=== PATIENT | female | born 1980 | race Caucasian/White ===

== ENCOUNTER 2016-12-05 08:17 | Inpatient (IN) | payer BC ==
[~2016-12-05] VITALS: Ht 165.1 cm; Wt 71.4 kg
[~2016-12-05 08:17] MED LIST: CEFAZOLIN 1,000 MG ONE; DOCU-30 PO; EPHEDRINE 50 MG/ML, 1ML ONE; IBUP-1222 PO; ONDANSETRON 2MG/ML, 2ML ONE; OXYC-302 PO; OXYTOCIN 10 UNITS/ML, 1ML ONE; PHENYLEPHRINE 10 MG/ML ONE; PREN1TAB60 PO
[2016-12-08] MEDS ORDERED: LACTATED RINGERS 1,000 ML IV SCH ×3 (06:06→08:31)
[2016-12-08] MEDS ORDERED: OXYTOCIN 30U/ 0.9% NaCL 500ML 500 ML IV SCH (06:06)
[2016-12-08] MEDS ORDERED: METOCLOPRAMIDE 5 MG/ML, 2ML ONE (06:11)
[2016-12-08] MEDS ORDERED: NEWBORN KIT ONE (06:11)
[2016-12-08] MEDS ORDERED: SODIUM CITRATE/CITRIC ACID 30 ML UDC ONE (06:11)
[2016-12-08] MEDS ORDERED: OXYTOCIN 30U/ 0.9% NaCL 500ML 500 ML ONE (06:11)
[2016-12-08] MEDS ORDERED: METOCLOPRAMIDE 5 MG/ML, 2ML IV ONE (06:30)
[2016-12-08] MEDS ORDERED: SODIUM CITRATE/CITRIC ACID 30 ML UDC PO ONE (06:30)
[2016-12-08] MEDS ORDERED: LACTATED RINGERS 1,000 ML IVBOLUS ONE (06:30)
[2016-12-08 06:53] VITALS: BP 111/68
[2016-12-08] MEDS ORDERED: morphine SULFATE/PF 0.5 MG/ML, 10ML ONE (07:24)
[2016-12-08] MEDS ORDERED: AZITHROMYCIN 500 MG in SODIUM CHLORIDE 0.9% 250 ML IV ONE (07:30)
[2016-12-08] MEDS: LACTATED RINGERS 1,000 ML IV SCH ×2 (08:31→15:21)
[2016-12-08] MEDS: OXYTOCIN 30U/ 0.9% NaCL 500ML 500 ML IV SCH ×2 (08:31→18:31)
[2016-12-08] MEDS ORDERED: DIPH,PERTUSS(ACELL),TET VAC/PF NC IM-VACC PRN (09:00)
[2016-12-08] MEDS ORDERED: morphine SULFATE 10 MG/ML, 1ML IVPush PRN (09:00)
[2016-12-08] MEDS ORDERED: CALCIUM CARBONATE 500 MG TAB.CHEW PO PRN (09:00)
[2016-12-08] MEDS ORDERED: ONDANSETRON 2MG/ML, 2ML IV PRN (09:00)
[2016-12-08] MEDS ORDERED: MISOPROSTOL 200 MCG TABLET PR PRN (09:00)
[2016-12-08] MEDS: PRENATAL VIT/IRON/FA 1 EACH TABLET PO SCH (09:00)
[2016-12-08] MEDS ORDERED: MEASLES,MUMPS&RUBELLA VACC/PF 0.5 ML SQ-VACC PRN (09:00)
[2016-12-08] MEDS ORDERED: OXYcodone IR 5MG TABLET PO PRN (09:00)
[2016-12-08] MEDS ORDERED: OXYcodone/APAP 5/325MG TABLET PO PRN (09:00)
[2016-12-08 10:30] VITALS: BP 104/66
[2016-12-08] MEDS: KETOROLAC 30 MG/1 ML IV SCH ×3 (10:40→23:55)
[2016-12-08 14:30] VITALS: BP 93/53
[2016-12-08 19:25] VITALS: BP 108/65
[2016-12-08] MEDS: DOCUSATE 100 MG CAPSULE PO PRN (20:00)
[2016-12-08 23:45] VITALS: BP 105/64
[2016-12-09] MEDS: LACTATED RINGERS 1,000 ML IV SCH ×3 (00:31→16:31)
[2016-12-09 04:10] VITALS: BP 94/55
[2016-12-09] MEDS: OXYTOCIN 30U/ 0.9% NaCL 500ML 500 ML IV SCH ×2 (04:31→14:31)
[2016-12-09] MEDS: KETOROLAC 30 MG/1 ML IV SCH ×3 (06:00→19:57)
[2016-12-09 09:38] VITALS: BP 99/59
[2016-12-09] MEDS: DOCUSATE 100 MG CAPSULE PO PRN ×2 (10:14→19:57)
[2016-12-09] MEDS: PRENATAL VIT/IRON/FA 1 EACH TABLET PO SCH (10:14)
[2016-12-09 20:00] VITALS: BP 105/69
[2016-12-10] MEDS: LACTATED RINGERS 1,000 ML IV SCH ×2 (00:31→08:31)
[2016-12-10] MEDS: OXYTOCIN 30U/ 0.9% NaCL 500ML 500 ML IV SCH ×2 (00:31→10:31)
[2016-12-10] MEDS: KETOROLAC 30 MG/1 ML IV SCH ×2 (02:16→07:00)
[2016-12-10] MEDS: DOCUSATE 100 MG CAPSULE PO PRN (07:42)
[2016-12-10] MEDS: IBUPROFEN 200 MG TABLET PO PRN ×2 (07:42→14:26)
[2016-12-10] MEDS: PRENATAL VIT/IRON/FA 1 EACH TABLET PO SCH (07:42)
[2016-12-10 08:03] VITALS: BP 101/62
[2016-12-10] MEDS ORDERED: IBUPROFEN 600 MG TABLET PO PRN (09:00)
== END 2016-12-10 14:47 | disposition home or self-care (01) | DRG 766 ==
LOC: LDIP 12-08 05:42 → 2NW 12-08 09:58
PROVIDERS: ADMIT Obstetrics & Gynecology Gynecology; ATTEND Obstetrics & Gynecology Gynecology
PROC: 10D00Z1 Extraction of Products of Conception, Low, Open Approach (ICD-10-PCS; principal; 2016-12-08)
DX: O34.211 Maternal care for low transverse scar from previous cesarean delivery (principal); Z37.0 Single live birth; O99.72 Diseases of the skin and subcutaneous tissue complicating childbirth; Z82.49 Family history of ischemic heart disease and other diseases of the circulatory system; L91.0 Hypertrophic scar; Z3A.39 39 weeks gestation of pregnancy; O99.824 Streptococcus B carrier state complicating childbirth
CPT/HCPCS: 36415; 82803; 85025; 86850; 86900; J0690; J1885; J2274; J2405; J2370; J2590; J2765; J7120